=== PATIENT | female | born 1995 | race African-American/Black ===

== ENCOUNTER 2017-01-16 20:51 | Emergency (ER) | payer BC, MEDICAID ==
[~2017-01-16] VITALS: Ht 162.6 cm; Wt 76.3 kg
[~2017-01-16 20:51] MED LIST: BIRTH CONTROL
[2017-01-16 22:33] VITALS: BP 118/66
== END 2017-01-16 22:37 | disposition home or self-care (01) ==
LOC: ED 22:17
DX: T49.0X1A Poisoning by local antifungal, anti-infective and anti-inflammatory drugs, accidental (unintentional), initial encounter (principal); K29.70 Gastritis, unspecified, without bleeding; Y92.89 Other specified places as the place of occurrence of the external cause
CPT/HCPCS: 99281

== ENCOUNTER 2018-06-19 10:48 | Day surgery (SDC) | payer BC ==
[~2018-06-19] VITALS: Ht 162.6 cm; Wt 80.0 kg
== END 2018-06-19 12:37 | disposition home or self-care (01) ==
LOC: CACL 10:48
PROVIDERS: ATTEND Internal Medicine Cardiovascular Disease
DX: Z45.09 Encounter for adjustment and management of other cardiac device (principal); R55 Syncope and collapse; I10 Essential (primary) hypertension; Z88.0 Allergy status to penicillin
CPT/HCPCS: 33285; C1764